=== PATIENT | male | born 1990 | race Caucasian/White ===

== ENCOUNTER 2022-10-26 16:37 | Emergency (ER) | payer BC ==
[~2022-10-26] VITALS: Ht 167.6 cm; Wt 83.5 kg
[2022-10-26 16:52] VITALS: BP 148/91; PULSE 74; RESP 20; TEMP 98.8; O2SAT 99
[2022-10-26] MEDS ORDERED: IBUPROFEN 600 MG TAB PO ONE (17:20)
[2022-10-26] MEDS ORDERED: CYCL-711 PO (18:06)
[2022-10-26] MEDS ORDERED: IBUP-2213 PO (18:06)
[2022-10-26 19:12] VITALS: BP 145/87; PULSE 72; RESP 18; TEMP 98.2; O2SAT 97
== END 2022-10-26 19:12 | disposition home or self-care (01) ==
LOC: MED 16:37
DX: R07.89 Other chest pain (principal); Z79.899 Other long term (current) drug therapy; Z79.1 Long term (current) use of non-steroidal anti-inflammatories (NSAID)
CPT/HCPCS: 71045; 93005; 99283